=== PATIENT | female | born 1935 | race Caucasian/White ===

== ENCOUNTER 2017-01-28 22:42 | Emergency (ER) | payer MEDICARE, BC ==
[2017-01-28] MEDS ORDERED: HYDROcodone /APAP 5/325 1 EACH TABLET PO ONE (22:49)
--- NOTE | 2017-01-28 22:58 | ED Physician Documentation ---
Fall - HISTORIAN Historian: patient, paramedics - HPI Chief Complaint: Fall Additional Information: waalked across floor fel w/rt hip pelvic pain--nh pt. hx reveals lpt falls frequently and that she has had pre fx this hip Onset: just prior to arrival Where: other (jail) Context: lost balance r: mild, moderate Associated Symptoms:: no loss of consciousness Location of Pain/Injury: other (peelvis on stretch). denies: head, neck, face Injury to Left Extremity: hip - ROS CONST: no problems. denies: recent illness, fever, sweating, weakness NEURO: denies: dizziness, anxiety CVS/RESP: denies: chest pain, shortness of breath, palpitations GI/: denies: problems urinating - PAST HX Past History: other (alzheimers-pt alert juan carlos benavidez historian gerd htn pseudo bulbar affect osteoporosis) Allergies/Adverse Reactions: Allergies Allergy/AdvReac Type Severity Reaction Status Date / Time No Known Allergies Allergy Verified 04/15/16 12:00 - SOCIAL HX Smoking History: non-smoker Alcohol Use: none Drug Use: none - FAMILY HX Family History: no significant history - VITAL SIGNS Vital Signs: Vital Signs Temp Pulse Resp BP Pulse Ox 114/54 04/15/16 13:55 - REVIEWED ASSESSMENTS Nursing Assessment Reviewed: Yes Vitals Reviewed: Yes ED Results Lab/Radiology - Orders Orders: ED Orders Category Date Time Status RT HIP 2VIEW COMPLETE [RAD] Stat Exams 01/28/17 Ordered Chem Sticks Med 01/29/17 07:30 Ordered 1 each [facility]MQ HYDROcodone /APAP 5/325 [[place] 5/325] Med 01/28/17 22:49 Once 1 each PO NOW ONE Fall Physical Exam - Physical Exam General Appearance: mild distress Head: non-tender, no swelling, no obvious injury Neck: non-tender, painless ROM Eye: ERICA, EOMI ENT: nml external inspection Resp/CVS: chest non-tender, no ecchymosis, breath sounds nml. No: tachycardia Abdomen: soft, non-tender Neuro: oriented x3, sensation nml, motor nml, mood/affect nml Skin: color nml, no rash. No: cyanosis, diaphoresis, pallor, ecchymosis Extremities: No: pelvis stable, hips non-tender (rt only) Joint: joints nml - [place] Coma Score Eyes Open: Spontaneous Speech: Oriented Motor: Obeys Commands Discharge Referrals: Steffanie Leslie MD [Primary Care Provider] - 2 Days
--- NOTE | 2017-01-28 23:35 | Diagnostic Imaging Report ---
GRACE KELLEY [facility] [address] [facility] [address] [address] Report Submission Date: Jan 28, 2017 11:30:00 PM CDT Patient Study Name: ELAINE HERNÁNDEZ Date: Jan 28, 2017 11:13:12 PM CDT Modality Type: CR Gender: F Description: SHOULDER : 39 Institution: [facility] Physician: GRACE KELLEY Right shoulder - two views Clinical history: Fall with injury. Findings: Examination right shoulder in multiple views demonstrates degenerative changes with slight narrowing of the acromioclavicular and glenohumeral joints. There is no evident fracture and no lytic or blastic lesion. Impression: 1. Degenerative changes. 2. No fracture. Electronically signed on Jan 28, 2017 11:30:00 PM CDT by: Romulo FERRERA
--- NOTE | 2017-01-28 23:36 | Diagnostic Imaging Report ---
GRACE KELLEY [facility] [address] [facility] [address] Report Submission Date: Jan 28, 2017 11:20:05 PM CDT Patient Study Name: ELAINE HERNÁNDEZ Date: Jan 28, 2017 10:58:02 PM CDT Modality Type: CR Gender: F Description: PELVIS : 39 Institution: [facility] Physician: GRACE KELLEY Right hip - two views Clinical history: Fall. Recent hip replacement. Pain. Findings: Examination of the right hip in AP and cross-table lateral views demonstrates right total hip replacement. Prosthetic components are normally seated in the [place] bony structures. There is no evident fracture and no lytic or blastic lesion. Impression: 1. Right total hip replacement. Electronically signed on Jan 28, 2017 11:20:05 PM CDT by: Romulo FERRERA
[2017-01-28 23:55] VITALS: BP 103/74
== END 2017-01-28 23:50 ==
LOC: ED 22:42
DX: M25.551 Pain in right hip (principal); W19.XXXA Unspecified fall, initial encounter; Y93.9 Activity, unspecified; Y99.9 Unspecified external cause status
CPT/HCPCS: 73030; 73502; A9270; 99284